=== PATIENT | male | born 1945 | race African-American/Black ===

== ENCOUNTER 2017-03-04 19:18 | Inpatient (IN) | payer MEDICARE ==
[2017-03-04 19:30] LABS: Actual Bicarbonate (HCO3a) 23.6 mEq/L (22-26); Base Excess (BEa) -3.3 mEq/L (0 (+/-) 2.5); CO2 Tension 49.7 mmHg (35.0-45.0); Calcium, Ionized 1.2 mmol/L (1.12-1.30); Hematocrit-ABG 43.8 % (42.0-52.0); Hemoglobin (Hb) 13.1 g/dL (14.0-18.0); O2 Tension (PaO2) 57.2 mmHg (80.0-100.0); pH, Arterial 7.29 (7.35-7.45)
[2017-03-04] MEDS ORDERED: Vecuronium 10 MG VIAL ONE ×2 (19:42→19:44)
[2017-03-04] MEDS ORDERED: Sterile Water 10 ML ONE (19:46)
[2017-03-04 19:57] LABS: Hemoglobin 13.6 g/dL (14.0-18.0); Mean Corpuscular HGB CONC 31.3 g/dL (32.0-36.0); Mean Corpuscular Hemoglobin 27.5 pg (27.0-31.0); Mean Corpuscular Volume 87.6 fl (80.0-94.0); Mean Platelet Volume 9.8 fL (7.4-10.4); Platelet Count 270 thou/uL (130-400); RBC Distribution Width 17.4 % (11.5-14.5); Red Blood Cell (RBC) Count 4.95 mill/uL (4.70-6.10); White Blood Cell (WBC) Count 12.8 thou/uL (4.8-10.8)
[2017-03-04] MEDS ORDERED: Propofol 1,000 MG/100 ML VIAL IV ONE ×2 (19:59→20:01)
[2017-03-04 20:16] LABS: Anisocytosis SLIGHT = 6-15 cells (100X) (0-5/hpf); Band 2 % (5-11); Eosinophils 2 % (0-10); Lymphocytes 45 % (21-51); MDiff Complete? YES; Monocytes 1 % (0-10); Neutrophil 47 % (42-75); PLT Morphology Comment Appears Adequate; Polychromasia SLIGHT = 2-3 cells (100X) (0-2/hpf); Schistocytes SLIGHT = 2-5 cells (100X) (0-1/hpf); Target Cells SLIGHT = 2-5 cells (100X) (0-1/hpf); Tear Drops SLIGHT = 2-5 cells (100X) (0-1/hpf)
[2017-03-04 20:18] LABS: Analyzer IN Cardio ER; Puncture Site LRA
[2017-03-04 20:19] LABS: ALV-art Gradient 165.075 (0-20)
[2017-03-04 20:22] LABS: CKMB 1.3 ng/mL (0-6.6)
[2017-03-04 20:33] LABS: Actual Bicarbonate (HCO3a) 26.6 mEq/L (22-26); Base Excess (BEa) -0.9 mEq/L (0 (+/-) 2.5); CO2 Tension 56.4 mmHg (35.0-45.0); Calcium, Ionized 1.2 mmol/L (1.12-1.30); Hematocrit-ABG 43.7 % (42.0-52.0); Hemoglobin (Hb) 13.3 g/dL (14.0-18.0); O2 Tension (PaO2) 86.3 mmHg (80.0-100.0); pH, Arterial 7.29 (7.35-7.45)
[2017-03-04 20:39] LABS: Bilirubin Negative (Negative); Blood, Urine Large (Negative); Clarity Clear (Clear); Glucose, Urine (Dipstick) 250 mg/dL (Negative); Leukocyte Negative (Negative); Nitrite Negative (Negative); Protein, Urine (Dipstick) Trace mg/dL (Neg-Trace); Urobilinogen 0.2 mg/dL (0.2-1.0); pH, Urine 5.5 (5.0-9.0)
[2017-03-04] MEDS ORDERED: Piperacillin/Tazobactam 4.5 GM in Sodium Chloride 0.9% 100 ML IVPB SCH (20:45)
[2017-03-04 20:46] LABS: Albumin 3.5 g/dL (3.4-4.8)
[2017-03-04 20:47] LABS: Chloride 106 mmol/L (98-107); Sodium 139 mmol/L (136-145)
[2017-03-04 20:47] LABS: Bacteria/HPF None Seen HPF (None Seen); Hyaline Casts/LPF 4-6 HYALINE CAST LPF (0-3 Hyaline); Pathc Cast-AUWi Flag 0.67 (0-2.49); RBC/HPF 21-50 HPF (0-3); Squamous Epithelial 0-3 HPF (0-3); WBC/HPF 0-3 HPF (0-3)
--- NOTE | 2017-03-04 20:47 | RAD ---
PORTABLE CHEST ONE VIEW 03/04/17 at 7:21 p.m. HISTORY: Shortness of breath, respiratory failure. FINDINGS/IMPRESSION: Comparison is made with exam of 10/20/16. An endotracheal tube has been placed with tip in the projection of the SVC. The nasogastric tube can be traced to below the level of the diaphragms with tip excluded from the film. The heart size is nor mal. The aorta is tortuous. Chronic changes are present. There is suggestion of patchy infiltrates in the left lung. No pneumothoraces or large effusions are seen. POS: [facility]
[2017-03-04 20:48] LABS: Glucose 228 mg/dL (83-110)
[2017-03-04 20:49] LABS: Globulin 3.3 g/dL (2.4-3.5); Protein, Total 6.8 g/dL (5.8-8.1)
[2017-03-04 20:50] LABS: Anion Gap 15 mmol/L (10-20); Bilirubin, Total 0.3 mg/dL (0.2-1.2); Carbon Dioxide 21 mmol/L (23-31)
[2017-03-04 20:51] LABS: Alkaline Phosphatase 59 U/L (40-150); Potassium 2.9 mmol/L (3.5-5.1)
[2017-03-04 20:52] LABS: BUN (Urea Nitrogen) 9 mg/dL (8.4-25.7); Calc. Creatinine Clearance 0 mL/min (70-130); Estimated GFR-MDRD Greater than 90
[2017-03-04 20:53] LABS: AST (SGOT) 25 U/L (5-34)
[2017-03-04 20:54] LABS: ALT (SGPT) 12 U/L (8-55); CK (CPK) 51 U/L (30-200)
[2017-03-04 21:10] LABS: Analyzer IN Cardio ER; Puncture Site LRA
[2017-03-04] MEDS ORDERED: hydrALAZINE 20 MG/ML VIAL ONE (21:30)
[2017-03-04] MEDS ORDERED: Lorazepam 2 MG/ML VIAL SLOW IVP PRN ×2 (23:07→23:34)
[2017-03-04] MEDS ORDERED: fentaNYL Citrate/PF 2,000 MCG in Sodium Chloride 0.9% 60 ML IV SCH ×2 (23:07→23:34)
[2017-03-04] MEDS ORDERED: Morphine 2 MG/ML SYRINGE SLOW IVP PRN ×2 (23:07→23:34)
[2017-03-04] MEDS ORDERED: DISCONTINUE PREVIOUS NARCOTIC PAIN MEDICATIONS AND BENZODIAZEPINES FS SCH ×2 (23:07→23:34)
[2017-03-04] MEDS ORDERED: Propofol 1,000 MG/100 ML VIAL IV PRN ×2 (23:07→23:34)
[2017-03-04] MEDS ORDERED: Ondansetron HCl/PF 4 MG/2 ML Vial IVP PRN ×2 (23:08→23:23)
[2017-03-04] MEDS ORDERED: Sodium Chloride 0.9% 1,000 ML IV SCH (23:08)
[2017-03-04] MEDS ORDERED: Ondansetron ODT 4 MG TAB SL PRN (23:08)
[2017-03-04] MEDS ORDERED: CCU Electrolyte Replacement 1 EACH FS SCH (23:23)
[2017-03-04] MEDS ORDERED: NS 0.9% w/ 40 MEQ KCL 1,000 ML IV SCH (23:23)
[2017-03-04] MEDS ORDERED: Acetaminophen 650 MG Suppository PR PRN (23:23)
[2017-03-04] MEDS ORDERED: Labetalol HCl 100 MG/20 ML VIAL SLOW IVP PRN (23:23)
[2017-03-04] MEDS ORDERED: HumaLOG 300 UNITS/3 ML VIAL SC PRN ×2 (23:23)
[2017-03-04] MEDS ORDERED: Dextrose 5% in Water 1,000 ML IV PRN (23:23)
[2017-03-04] MEDS ORDERED: Dextrose 50% Abboject 50 ML SYRINGE SLOW IVP PRN (23:23)
[2017-03-04] MEDS ORDERED: hydrALAZINE 20 MG/ML VIAL SLOW IVP PRN (23:23)
[2017-03-04] MEDS ORDERED: Sedation Protocol FS SCH (23:23)
[2017-03-04] MEDS ORDERED: Potassium Phosphate 15 MMOL in Sodium Chloride 0.9% 250 ML 250 ML IV PRN (23:34)
[2017-03-04] MEDS ORDERED: Potassium Chloride 40 MEQ in Premix Bag 1 BAG IVPB PRN (23:34)
[2017-03-04] MEDS ORDERED: Potassium Chloride 40 MEQ in Sodium Chloride 0.9% 250 ML 250 ML IVPB PRN (23:34)
[2017-03-04] MEDS ORDERED: Magnesium 2 GM/NS 0.9% 100 ML 2 GM in Premix Bag 1 BAG IVPB PRN (23:34)
[2017-03-04] MEDS ORDERED: Potassium Phosphate 12 MMOL in Sodium Chloride 0.9% 250 ML 250 ML IV PRN (23:34)
[2017-03-04] MEDS ORDERED: CCU ELECTROLYTE REPLACEMENT PROTOCOL FS PRN (23:34)
[2017-03-04] MEDS ORDERED: Potassium Chloride 20 MEQ TAB PO PRN (23:34)
[2017-03-04] MEDS ORDERED: Potassium Phosphate 9 MMOL in Sodium Chloride 0.9% 100 ML IVPB PRN (23:34)
[2017-03-04] MEDS ORDERED: Magnesium Oxide 400 MG TAB PO PRN ×2 (23:34)
[2017-03-05 00:29] VITALS: BMI 14.9
--- NOTE | 2017-03-05 02:51 | HP ---
PRIMARY CARE PHYSICIAN: Arjun Perez MD CHIEF COMPLAINT: Shortness of breath. HISTORY OF PRESENT ILLNESS: Mr. Topete is a 71-year-old gentleman who has multiple medical problems including dementia, previous cerebrovascular disease with dysphagia, hypertension, and COPD. He was recently in our hospital for an episode of aspiration pneumonia as well as COPD exacerbation. Accord ing to the patient's who is at the bedside, the patient was doing fine until about 6:30 p.m., holt ddenly he looked like he was gasping for air and could not breathe. Prior to that, he had been doing fine. She mentioned that he just finished eating and things possibly he may have aspirated. She sa ys that she had fed him some dressing and potatoes and a little bit of soft cookie, but otherwise not zaki more solid. She denies that he was having any chest pain or any cough or congestion prior to at. No known fevers or chills, etc. She says he is pretty much bedbound. She said that after his h ospitalization back in October, he mostly is confined to the bed and needs help with all activities of daily living. Otherwise, no additional history is obtainable. He apparently arrived in [facility] and was placed on BiPAP and then had to be intubated in order to improve his oxygenation. REVIEW OF SYSTEMS: The review of systems is unobtainable due to the patient being intubated. PAST MEDICAL HISTORY: Significant for; 1. COPD on home oxygen with chronic respiratory failure with hypoxemia. 2. Dementia. 3. Cerebrovascular accident. 4. Coronary artery disease. 5. Hypertension. PAST SURGICAL HISTORY: He had abdominal surgery in the past, which resulted in an anastomotic leak r equiring exploratory laparotomy. ALLERGIES: No known drug allergies. SOCIAL HISTORY: He is . His , Taya Topete, is a medical power of sales trainer. He is a form er smoker. Denies any alcohol use. FAMILY HISTORY: Significant for diabetes in his sister, heart disease in his father, and cancer in h is mother. MEDICATIONS: Currently, he is not taking any according to the , she says that he had refused to take any medications recently. PHYSICAL EXAMINATION: GENERAL: The patient is intubated and sedated. He will open his eyes. VITAL SIGNS: Blood pressure was 196/147, heart rate 126, respiratory rate of 20, temperature was 97. 2. HEENT: His pupils are equal, round, and reactive. Unable to assess extraocular muscles. NECK: There is no adenopathy, no bruits. LUNGS: He has got bilateral expiratory wheezing as well as some rales. CARDIOVASCULAR: He has normal S1, S2. There is no S3 or S4. No murmurs, clicks, or rubs. ABDOMEN: Soft. Positive for bowel sounds. There is no rebound or guarding. EXTREMITIES: There is no edema. NEUROLOGIC: Difficult to assess. Apparently, he was moving all extremities prior to admission. The patient's says that normally he is disoriented, but he is able to recognize family members. LABORATORY AND DIAGNOSTIC DATA: On his x-ray, he has got hyperinflation of the lungs and a possible infiltrate in the left mid lung. There was no effusion. His white blood cell count 12.8, hemoglobin 13.6, hematocrit is 43.4, platelet count is 270. Sodium 139, potassium 2.9, chloride is 106, CO2 is 21, BUN of 9, creatinine 0.83, glucose is 228. Urinalysis showed large blood. ASSESSMENT AND PLAN: 1. A 71-year-old gentleman who has a history of cerebrovascular accident and has history of dysphagi a. He is normally on pureed diet. He suffered an acute episode of shortness of breath following eat ing and I suspect he probably did aspirate since he did not have any significant prodromal symptoms. He will be admitted to the ICU since he has required mechanical ventilation. Continue the current v ent settings. We will consult Pulmonary and Critical Care. He will be placed on IV antibiotics to c over for aspiration pneumonia. He will be placed on deep venous thrombosis and gastrointestinal prop hylaxis. 2. Hypertension. His blood pressure is currently under control. Hopefully, this will improve with sedation for mechanical ventilation and we will also place him on p.r.n. medications as well. I have already expressed that given his advanced age and general cachexia. He does appear to have some mod erate protein-calorie malnutrition that his prognosis is guarded at best.
[2017-03-05 03:12] LABS: Anion Gap 15 mmol/L (10-20); BUN (Urea Nitrogen) 10 mg/dL (8.4-25.7); Calc. Creatinine Clearance 51 mL/min (70-130); Calcium 8.2 mg/dL (7.8-10.44); Carbon Dioxide 20 mmol/L (23-31); Chloride 112 mmol/L (98-107); Estimated GFR-MDRD Greater than 90; Glucose 120 mg/dL (83-110); Potassium 4.9 mmol/L (3.5-5.1); Sodium 142 mmol/L (136-145)
[2017-03-05 04:11] LABS: CO2 Tension 33.4 mmHg (35.0-45.0); pH, Arterial 7.41 (7.35-7.45)
[2017-03-05 04:12] LABS: Actual Bicarbonate (HCO3a) 20.5 mEq/L (22-26); Base Excess (BEa) -3.4 mEq/L (0 (+/-) 2.5); Calcium, Ionized 1.1 mmol/L (1.12-1.30); Hematocrit-ABG 42.4 % (42.0-52.0); Hemoglobin (Hb) 13.3 g/dL (14.0-18.0); O2 Tension (PaO2) 47.6 mmHg (80.0-100.0)
[2017-03-05 04:13] LABS: Puncture Site LRA
[2017-03-05] MEDS: Piperacillin/Tazobactam 3.375 GM in Sodium Chloride 0.9% 100 ML IVPB SCH ×3 (05:00→18:12)
[2017-03-05] MEDS ORDERED: Sodium Chloride 0.9% 500 ML IV SCH (06:45)
[2017-03-05 06:58] LABS: ALV-art Gradient 578.975 (0-20); Actual Bicarbonate (HCO3a) 18.2 mEq/L (22-26); Base Excess (BEa) -6.6 mEq/L (0 (+/-) 2.5); CO2 Tension 34.1 mmHg (35.0-45.0); Hematocrit-ABG 35.6 % (42.0-52.0); Hemoglobin (Hb) 11.4 g/dL (14.0-18.0); O2 Tension (PaO2) 86.4 mmHg (80.0-100.0); Puncture Site RRA; pH, Arterial 7.35 (7.35-7.45)
--- NOTE | 2017-03-05 08:10 | RAD ---
FRONTAL VIEW CHEST SERIES: COMPARISON: Previous day. INDICATION: Hypoxia, followup. FINDINGS: Supportive lines and tubes remain. There is progressive interstitial and alveolar opacity at the lef t lung. There is scattered interstitial prominence of the right lung notably at the apex and base wi th interspersed hyperinflated pulmonary parenchyma related to COPD. The chest is otherwise similar i n appearance. IMPRESSION: Progressive parenchymal opacification throughout the left hemithorax. Continued followup is recommen ded. POS: [facility]
[2017-03-05 08:36] LABS: #Lymphocytes 1.3 thou/uL (1.20-3.40); #Monocytes 0.8 thou/uL (0.11-0.59); #Neutrophils 8.1 thou/uL (1.40-6.50); %Basophils 0.1 % (0.0-1.0); %Eosinophils 0.4 % (0.0-10.0); %Lymphocytes 12.9 % (21.0-51.0); %Monocytes 7.4 % (0.0-10.0); %Neutrophils 79.2 % (42.0-75.0); Hemoglobin 13.9 g/dL (14.0-18.0); Mean Corpuscular HGB CONC 30.7 g/dL (32.0-36.0); Mean Corpuscular Volume 87.9 fl (80.0-94.0); Mean Platelet Volume 5.7 fL (7.4-10.4); Platelet Count 146 thou/uL (130-400); RBC Distribution Width 17.4 % (11.5-14.5); Red Blood Cell (RBC) Count 5.17 mill/uL (4.70-6.10); White Blood Cell (WBC) Count 10.2 thou/uL (4.8-10.8)
[2017-03-05] MEDS ORDERED: Famotidine/PF 20 mg/2ml Vial SLOW IVP SCH (09:00)
[2017-03-05] MEDS ORDERED: Enoxaparin Sodium 30 MG/0.3 ML SYRINGE SC SCH (09:00)
[2017-03-05] MEDS ORDERED: Linezolid 600 MG in Premix Bag 1 BAG IVPB SCH (09:00)
[2017-03-05 09:45] LABS: Lactic Acid 7.2 mmol/L (0.5-2.2)
[2017-03-05] MEDS ORDERED: Sodium Chloride 0.9% 1,000 ML IV SCH ×2 (12:15→15:45)
--- NOTE | 2017-03-05 12:57 | PDOC.PN ---
- Subjective Encounter Start Date: 03/05/17 Encounter Start Time: 11:00 Subjective: is on vent and sedated - Objective Resuscitation Status: Resuscitation Status FULL:Full Resuscitation MAR Reviewed: Yes Vital Signs & Weight: Vital Signs (12 hours) Temp Pulse Resp BP Pulse Ox 03/05/17 12:00 27 H 03/05/17 10:47 85 150/84 H 03/05/17 10:00 38 H 03/05/17 08:08 80 69/50 L 03/05/17 08:00 99.1 F 79 39 H 97 03/05/17 07:00 99.1 F 03/05/17 06:00 36 H 03/05/17 04:00 44 H 03/05/17 03:00 97.6 F 03/05/17 02:27 95 03/05/17 02:00 36 H Weight Weight 98 lb 5.219 oz Most Recent Monitor Data Heart Rate from ECG 88 NIBP 141/82 NIBP BP-Mean 94 Respiration from ECG 28 SpO2 98 I&O: 03/04/17 03/05/17 03/06/17 06:59 06:59 06:59 Intake Total 563 500 Output Total 905 150 Balance -342 350 Result Diagrams: 03/05/17 07:48 03/05/17 02:43 Additional Labs: Accuchecks 03/05/17 12:17 POC Glucose 114 H Phys Exam - Physical Examination cachectic male HEENT: PERRLA, sclera anicteric Neck: no JVD, supple Respiratory: no wheezing, no rales rhonchi++ Cardiovascular: RRR, no significant murmur Gastrointestinal: soft, no distention, positive bowel sounds Musculoskeletal: no edema, pulses present Neurological: non-focal Dx/Plan (1) Acute respiratory failure with hypoxia and hypercapnia Code(s): J96.01 - ACUTE RESPIRATORY FAILURE WITH HYPOXIA; J96.02 - ACUTE RESPIRATORY FAILURE WITH HYPERCAPNIA Status: Acute (2) Aspiration pneumonia Code(s): J69.0 - PNEUMONITIS DUE TO INHALATION OF FOOD AND VOMIT Status: Acute Qualifiers: Aspiration pneumonia type: due to regurgitated food (3) COPD exacerbation Code(s): J44.1 - CHRONIC OBSTRUCTIVE PULMONARY DISEASE W (ACUTE) EXACERBATION Status: Acute (4) CAD (coronary artery disease) Code(s): I25.10 - ATHSCL HEART DISEASE OF [place] CORONARY ARTERY W/O ANG PCTRS Status: Chronic Qualifiers: Coronary Disease-Associated Artery/Lesion type: [place] artery [place] vs. transplanted heart: [place] heart Associated angina: without angina Qualified Code(s): I25.10 - Atherosclerotic heart disease of [place] coronary artery without angina pectoris (5) Dementia Code(s): F03.90 - UNSPECIFIED DEMENTIA WITHOUT BEHAVIORAL DISTURBANCE Status: Chronic Qualifiers: Dementia type: vascular dementia Dementia behavioral disturbance: without behavioral disturbance Qualified Code(s): F01.50 - Vascular dementia without behavioral disturbance (6) Dysphagia Code(s): R13.10 - DYSPHAGIA, UNSPECIFIED Status: Chronic Qualifiers: Dysphagia type: unspecified Qualified Code(s): R13.10 - Dysphagia, unspecified (7) H/O prostate cancer Code(s): Z85.46 - PERSONAL HISTORY OF MALIGNANT NEOPLASM OF PROSTATE Status: Chronic (8) H/O: CVA (cerebrovascular accident) Code(s): Z86.73 - PRSNL HX OF TIA (TIA), AND CEREB INFRC W/O RESID DEFICITS Status: Chronic (9) HTN (hypertension) Code(s): I10 - ESSENTIAL (PRIMARY) HYPERTENSION Status: Chronic Qualifiers: Hypertension type: essential hypertension Qualified Code(s): I10 - Essential (primary) hypertension - Plan is on zosyn, steroids, nebs -: 1 liter normal saline bolus -: poor prognosis -: is talking to family -: will f/u * . Review of Systems - Medications/Allergies Allergies/Adverse Reactions: Allergies Allergy/AdvReac Type Severity Reaction Status Date / Time No Known Allergies Allergy Verified 03/05/17 01:10 Medications: Current Medications Acetaminophen (Tylenol) 650 mg UT Q4H PRN PRN Reason: Headache/Fever or Pain Albuterol/Ipratropium (Duoneb) 3 ml NEB [id number] NISH Last Admin: 03/05/17 10:46 Dose: 3 ml Dextrose/Water (Dextrose 50%) 25 gm SLOW IVP PRN PRN PRN Reason: Hypoglycemia Enoxaparin Sodium (Lovenox) 30 mg SC 0900 NISH Last Admin: 03/05/17 09:16 Dose: 30 mg Famotidine (Pepcid) 20 mg SLOW IVP Q12HR NISH Last Admin: 03/05/17 09:15 Dose: 20 mg Glucagon (Glucagon) 1 mg IM PRN PRN PRN Reason: Hypoglycemia Hydralazine HCl (Apresoline) 10 mg SLOW IVP Q4H PRN PRN Reason: Systolic BP > 180 Potassium Chloride/Sodium Chloride (Ns 0.9% W/ 40 Meq Kcl) 1,000 mls @ 75 mls/ hr IV .[id number] [facility] Last Admin: 03/04/17 23:49 Dose: 1,000 mls Piperacillin Sod/Tazobactam (Sod 3.375 gm/ Sodium Chloride) 100 mls @ 200 mls/ hr IVPB Q6HR [facility] Last Admin: 03/05/17 12:02 Dose: 100 mls Dextrose/Water (D5w) 1,000 mls @ 0 mls/hr IV .Q0M PRN; As Directed PRN Reason: Hypoglycemia Fentanyl Citrate 2,000 mcg/ (Sodium Chloride) 100 mls @ 0 mls/hr IV INF NISH; Per Protocol PRN Reason: Protocol Stop: 04/03/17 23:34 Fentanyl Citrate (Fentanyl Bolus) 250 mls @ 0 mls/hr IVPB PRN PRN; As Directed PRN Reason: Breakthrough pain Stop: 04/03/17 23:34 Potassium Chloride 40 meq/ (Sodium Chloride) 270 mls @ 135 mls/hr IVPB ASDIR PRN PRN Reason: FOR SERUM K+ 2.5 - 3.5 Potassium Chloride 40 meq/ (Device) 100 mls @ 50 mls/hr IVPB ASDIR PRN PRN Reason: FOR SERUM K+ 2.5 - 3.5 Magnesium Sulfate 1 gm/ Sodium (Chloride) 102 mls @ 102 mls/hr IV PRN PRN PRN Reason: MAG LEVEL 1.4 - 2.0 Magnesium Sulfate 2 gm/ Device 100 mls @ 100 mls/hr IVPB ASDIR PRN PRN Reason: MAGNESIUM < 1.4 Potassium Phosphate 9 mmol/ (Sodium Chloride) 103 mls @ 25.75 mls/hr IVPB ASDIR PRN PRN Reason: Phosphate 1.0-1.8 Potassium Phosphate 12 mmol/ (Sodium Chloride) 254 mls @ 63.5 mls/hr IV ASDIR PRN PRN Reason: Serum phosphate 0.5-0.9 Potassium Phosphate 15 mmol/ (Sodium Chloride) 255 mls @ 63.75 mls/hr IV ASDIR PRN PRN Reason: Serum Phos < 0.5 Linezolid 600 mg/ Device 300 mls @ 150 mls/hr IVPB Q12HR [facility] Last Admin: 03/05/17 09:50 Dose: 300 mls Insulin Human Lispro (Humalog) 0 units SC .MILD SLIDING SCALE PRN PRN Reason: Mild Correctional Scale Insulin Human Lispro (Humalog) 0 units SC .BEDTIME SLIDING SC PRN PRN Reason: Bedtime Correctional Scale Labetalol HCl (Normodyne) 20 mg SLOW IVP Q4H PRN PRN Reason: Systolic BP > 180 Lorazepam (Ativan) 2 mg SLOW IVP Q2H PRN PRN Reason: Anxiety to achieve Armstrong 2-3 Stop: 04/03/17 23:34 Last Admin: 03/05/17 03:02 Dose: 2 mg Magnesium Oxide (Magnesium Oxide) 400 mg PO BIDPRN PRN PRN Reason: FOR SERUM MAG 1.4 - 2.0 Magnesium Oxide (Magnesium Oxide) 800 mg PO PRN PRN PRN Reason: FOR SERUM MAG < 1.4 Methylprednisolone Sodium Succinate (Solu-Medrol) 40 mg IVP Q6HR [facility] Last Admin: 03/05/17 12:02 Dose: 40 mg Miscellaneous Medication (Ccu Electrolyte Replacement) 1 each FS ONE [facility] Stop: 04/03/17 23:24 Miscellaneous Medication (Sedation Protocol) 1 each FS ONE [facility] Stop: 04/03/17 23:24 Miscellaneous Medication (Phos-Nak) 1 pkt PO TIDPRN PRN PRN Reason: FOR PHOS LEVEL 1.0 - 1.8 Miscellaneous Medication (Phos-Nak) 2 pkt PO TIDPRN PRN PRN Reason: FOR PHOS LEVEL 0.5 - 1.0 Morphine Sulfate (Morphine) 2 mg SLOW IVP Q2H PRN PRN Reason: Breakthrough pain Stop: 04/03/17 23:34 Last Admin: 03/05/17 04:23 Dose: 2 mg Discontinue Previous Narcotic Pain Medications And Benzodiazepines 1 each FS .ONE [facility] Stop: 04/03/17 23:34 Ccu Electrolyte (Replacement Protocol) 0 each FS PRN PRN PRN Reason: FOR ELECTROLYTE REPLACEMENT Ondansetron HCl (Zofran) 4 mg IVP Q6H PRN PRN Reason: Nausea/Vomiting Potassium Chloride (K-Dur) 40 meq PO ASDIR PRN PRN Reason: FOR SERUM K+ 2.5 - 3.5 Potassium Chloride (Klor-Con) 40 meq PER TUBE ASDIR PRN PRN Reason: FOR SERUM K+ 2.5-3.5 Propofol (Diprivan) 1,000 mg IV INF PRN; Protocol PRN Reason: TO ACHIEVE ARMSTRONG SCORE 2-3 Stop: 04/03/17 23:34 Last Admin: 03/05/17 05:00 Dose: 1,000 mg Sodium Chloride (Flush - Normal Saline) 10 ml IVF Q12HR NISH Sodium Chloride (Flush - Normal Saline) 10 ml IVF PRN PRN PRN Reason: Saline Flush
[2017-03-05 14:10] VITALS: BP 170/104
--- NOTE | 2017-03-05 14:38 | PDOC.EVN ---
Event Note - Event Note Event Note: d/w , daughter and their cnc machine programmer around 2pm. Gave an update after brief code for vt with cpr of 5 minutes with return of normal rhythm. Family donot want anymore cpr done on him but would want to continue everything else for now.
[2017-03-05 15:56] LABS: ALT (SGPT) 18 U/L (8-55); Alkaline Phosphatase 42 U/L (40-150); BUN (Urea Nitrogen) 9 mg/dL (8.4-25.7)
[2017-03-05 16:13] LABS: AST (SGOT) 34 U/L (5-34); Albumin 3.3 g/dL (3.4-4.8); Anion Gap 19 mmol/L (10-20); Bilirubin, Total 0.9 mg/dL (0.2-1.2); Calc. Creatinine Clearance 54 mL/min (70-130); Calcium 8.4 mg/dL (7.8-10.44); Carbon Dioxide 16 mmol/L (23-31); Chloride 111 mmol/L (98-107); Estimated GFR-MDRD Greater than 90; Globulin 2.4 g/dL (2.4-3.5); Glucose 98 mg/dL (83-110); Potassium 3.7 mmol/L (3.5-5.1); Protein, Total 5.7 g/dL (5.8-8.1); Sodium 142 mmol/L (136-145)
[2017-03-05] MEDS ORDERED: Magnesium Oxide 400 MG TAB PO SCH ×2 (16:31→21:00)
[2017-03-05] MEDS ORDERED: Metoprolol Tartrate 50 MG TAB PO SCH (16:32)
[2017-03-05 16:39] VITALS: TEMP 99.7
--- NOTE | 2017-03-05 19:05 | CON ---
DATE OF CONSULTATION: 03/05/2017 REASON FOR CONSULTATION: Torsade. PRIMARY PRODUCTION ROUSTABOUT: Manoj Brewer M.D. HISTORY OF PRESENT ILLNESS: Mr. Topete is a 71-year-old gentleman who has been seen and evaluated by Dr. Manoj Brewer in the past. He recently presented with respiratory failure and significant lobar pneumonia. He has issues with aspiration. He developed respiratory distress followed by respirator y failure and required intubation. Today code blue was called. He developed torsades. CPR ensued. He is now back in sinus rhythm. The patient underwent coronary angiography by Dr. Manoj Brewer in 02/2015. Left main artery has nor mal LAD with 20% to 30% stenosis. Circumflex artery has a 50% lesion and bifurcation. There was als o mild plaque noted in the right coronary artery. LVEF was 55%. There was hypokinesis along the dis navin inferior wall. He also has associated severe PVD. PAST MEDICAL HISTORY: As above including severe COPD, previous CVA, hyperlipidemia, prostate cancer, hypertension, dementia. REVIEW OF SYSTEMS: Unobtainable. He is currently intubated and sedated. PHYSICAL EXAMINATION: GENERAL: He is currently intubated and sedated. He appears cachectic. VITAL SIGNS: Blood pressure 104/76, pulse 105, temperature 99.7. NEUROLOGIC: The patient is alert and oriented times 3 with no focal neurologic deficits. HEENT: Sclerae without icterus. Mouth has moist mucous membranes with normal pallor. NECK: No JVD. Carotid upstroke brisk. No bruits bilaterally. LUNGS: Clear to auscultation with unlabored respirations. BACK: No scoliosis or kyphosis. CARDIAC: Regular rate and rhythm with normal S1 and S2. No S3 or S4 noted. No significant rubs, mu rmurs, thrills, or gallops noted throughout the precordium. PMI is not displaced. There is no eli ternal heave. ABDOMEN: Soft, nontender, nondistended. No peritoneal signs present. No hepatosplenomegaly. No ab normal striae. EXTREMITIES: 2+ femoral and 2+ dorsalis pedis pulses. No cyanosis, clubbing, or edema. SKIN: No gross abnormalities. LABORATORY DATA: Hemoglobin 13.9. Lactic acid 7.2, sodium 142, potassium 3.7, creatinine 0.79, BNP 2397. IMPRESSION: 1. Torsade. 2. Coronary artery disease. 3. Respiratory failure. 4. Pneumonia. RECOMMENDATIONS: Current etiology may be multifactorial. I do not feel this is bradycardic induced. This may be induced by ischemia. Other etiologies include hypoxia and hypomagnesemia. We will con tinue vent support. Family decided on conservative measures. We will supplement with magnesium if n eeded. We will check CKs and troponins. I did spend 35 minutes of critical care time.
[2017-03-05] MEDS ORDERED: Metoprolol Tartrate 25 MG TAB PO SCH (21:00)
--- NOTE | 2017-03-09 00:59 | DIS ---
DATE OF : 6:39 p.m. on 03/05/2017 PRIMARY CAUSE OF : Acute respiratory failure with hypoxia and hypercarbia , 30 hours, aspiration pneumonia, acute chronic obstructive pulmonary disease exacerbation, ventricular tachycardia. SECONDARY CAUSES OF : History of cerebrovascular accident with dysphagia, severe deconditioning, dementia which is vascular, coronary artery disease, failure to thrive in adult. BRIEF COURSE DURING HOSPITALIZATION: The patient initially was brought to emergency room on 03/04/2017 for shortness of breath. He was saturating 60% on arrival with severe respiratory distress. He was initially placed on BiPAP and finally had to be intubated for acute respiratory failure with hypoxemia and hypercarbia. His x-ray also revealed infiltrate likely aspiration in view of patient's history of CVA with history of dysphagia and being on a pureed diet. The patient was pancultured and was placed on broad-spectrum antibiotics. Twenty-four hours into hospitalization, the patient developed an episode of torsades, he was given magnesium and electrolytes were rechecked. The patient had consultation with Dr. Mcgill for Pulmonology and Dr. Nathan for Cardiology. His overall prognosis was poor due to underlying chronic multiple comorbidities. I have had discussions with the patient's , daughter and her advertising project manager around 2:00 p.m. with regards to his code status. The family did not want him to suffer and they did not want CPR done on him and wanted everything else to continue. The patient went into V-tach again around 6:38 p.m. and patient went into asystole soon after and was declared . The body will be released to family per hospital protocol. ALYSSIA
== END 2017-03-05 18:39 | disposition expired | DRG 208 ==
LOC: ERS 19:18 → CCU 21:55
PROVIDERS: ADMIT Internal Medicine; ATTEND Internal Medicine
PROC: 0BH17EZ Insertion of Endotracheal Airway into Trachea, Via Natural or Artificial Opening (ICD-10-PCS; principal; 2017-03-04)
PROC: 5A1945Z Respiratory Ventilation, 24-96 Consecutive Hours (ICD-10-PCS; 2017-03-04)
DX: J96.01 Acute respiratory failure with hypoxia (principal); J69.0 Pneumonitis due to inhalation of food and vomit; I47.2 Ventricular tachycardia; R64 Cachexia; J44.1 Chronic obstructive pulmonary disease with (acute) exacerbation; E44.0 Moderate protein-calorie malnutrition; R13.10 Dysphagia, unspecified; Z99.81 Dependence on supplemental oxygen; Z68.1 Body mass index [BMI] 19.9 or less, adult; J96.02 Acute respiratory failure with hypercapnia; I69.391 Dysphagia following cerebral infarction; R62.7 Adult failure to thrive; I25.10 Atherosclerotic heart disease of native coronary artery without angina pectoris; F01.50 Vascular dementia, unspecified severity, without behavioral disturbance, psychotic disturbance, mood disturbance, and anxiety; I46.9 Cardiac arrest, cause unspecified; E78.5 Hyperlipidemia, unspecified; I10 Essential (primary) hypertension; Z85.46 Personal history of malignant neoplasm of prostate; Z87.891 Personal history of nicotine dependence
CPT/HCPCS: 31500; 36415; 36416; 51702; 71045; 80048; 80053; 81003; 81015; 82533; 82550; 82553; 82805; 83605; 83735; 83880; 84484; 85025; 87040; 87070; 87086; 87205; 93005; 94002; 94003; 94640; 94760; 96365; 96366; 96367; 96368; 99292; A4216; J0360; J1650; J1956; J2020; J2060; J2270; J2543; J2704; J2920; J3370; J7050; J7620; P9045; S0028